=== PATIENT | male | born 1980 | race Caucasian/White ===

== ENCOUNTER 2018-09-03 22:33 | Inpatient (IN) | payer BC ==
[2018-09-03] MEDS ORDERED: Heparin 1,000 UNITS/ML VIAL ONE ×2 (23:32)
[2018-09-03] MEDS ORDERED: Heparin 25,000 units/D5W 500 ML ONE (23:50)
[2018-09-04 00:22] LABS: CKMB 31.4 ng/mL (0-6.6)
[2018-09-04 02:30] VITALS: BMI 39.2
[2018-09-04] MEDS ORDERED: Acetaminophen 325 MG TAB PO PRN (02:37)
[2018-09-04] MEDS ORDERED: Acetaminophen 650 MG Suppository PR PRN (02:37)
[2018-09-04] MEDS ORDERED: Bisacodyl 5 MG TAB PO PRN (02:37)
[2018-09-04] MEDS ORDERED: Ondansetron ODT 4 MG TAB PO PRN (02:37)
[2018-09-04] MEDS ORDERED: Ondansetron PF 4 MG/2 ML Vial IVP PRN (02:37)
[2018-09-04] MEDS ORDERED: Senokot S 8.6-50 MG TAB PO PRN (02:37)
[2018-09-04] MEDS ORDERED: Heparin 25,000 units/D5W 500 ML IVPB SCH (02:45)
[2018-09-04 02:57] LABS: Critical Call Chem Troponin I RESULT DECREASING; Troponin I 17.524 ng/mL (< 0.028)
[2018-09-04] MEDS ORDERED: Heparin 10,000 UNITS/ 10 ML VIAL SLOW IVP SCH (03:00)
[2018-09-04] MEDS: Sodium Chloride 0.9% 1,000 ML IV SCH ×2 (04:21→11:33)
[2018-09-04 05:09] LABS: #Eosinphils 0.1 thou/uL (0.0-0.7); #Monocytes 0.9 thou/uL (0.11-0.59); #Neutrophils 5.7 thou/uL (1.40-6.50); %Basophils 0.2 % (0.0-1.0); %Eosinophils 0.6 % (0.0-10.0); %Lymphocytes 23.3 % (21.0-51.0); %Monocytes 10.7 % (0.0-10.0); %Neutrophils 65.2 % (42.0-75.0); Hemoglobin 14.1 g/dL (14.0-18.0); Mean Corpuscular HGB CONC 34.7 g/dL (32.0-36.0); Mean Corpuscular Hemoglobin 32.1 pg (27.0-31.0); Mean Corpuscular Volume 92.5 fL (78.0-98.0); Mean Platelet Volume 8.5 fL (7.4-10.4); Platelet Count 173 thou/uL (130-400); RBC Distribution Width 11.5 % (11.5-14.5); Red Blood Cell (RBC) Count 4.39 mill/uL (4.70-6.10); White Blood Cell (WBC) Count 8.7 thou/uL (4.8-10.8)
[2018-09-04 05:38] LABS: Anion Gap 13 mmol/L (10-20); BUN (Urea Nitrogen) 10 mg/dL (8.9-20.6); Calc. Creatinine Clearance 195 mL/min (70-130); Calcium 8.9 mg/dL (7.8-10.44); Carbon Dioxide 24 mmol/L (22-29); Chloride 104 mmol/L (98-107); Estimated GFR-MDRD Greater than 90; Glucose 89 mg/dL (70-105); Potassium 4.3 mmol/L (3.5-5.1); Sodium 137 mmol/L (136-145)
[2018-09-04 07:09] LABS: Troponin I 19.537 ng/mL (< 0.028)
[2018-09-04] MEDS ORDERED: Diazepam 5 MG TAB PO SCH (07:30)
[2018-09-04] MEDS ORDERED: Communication Order-Pharmacy FS SCH (07:30)
[2018-09-04] MEDS ORDERED: Midazolam HCl 2 mg/2 ml Vial ONE (07:45)
[2018-09-04] MEDS ORDERED: Fentanyl 100 MCG/2 ML VIAL ONE (07:45)
[2018-09-04] MEDS ORDERED: Metoprolol Tartrate 5 MG/5 ML VIAL ONE (07:57)
[2018-09-04] MEDS ORDERED: Nitroglycerin 100MG/250ML BOT 250 ML ONE (08:07)
--- NOTE | 2018-09-04 08:27 | HP ---
CHIEF COMPLAINT: Chest pain. HISTORY OF PRESENT ILLNESS: This is a 38-year-old male with past medical history of hypertension, GERD, migraines, tobacco user, presenting with chest pain. The patient was transferred from [place] to our facility to be further evaluated since the patient has been having chest pain since September 01. Per records, the patient states that he was relaxing when he started having his chest pain which was substernal in nature, localized, not radiating, on the pain scale of 10/10. The patient states that the chest pain was intermittent, and it has been ongoing since September 01, 2018. The patient also endorses shortness of breath, neck pain, nausea, dizziness, some vomiting during the Chancellor Jayne. At this time, the patient is saying that, after receiving aspirin, his chest pain is 2/10 and he is feeling much better. The patient denies any fevers, headaches, palpitations, abdominal pain, dysuria, hematuria, hematochezia, or melena. REVIEW OF SYSTEMS: Positive for chest pain that radiates to the patient's neck, near syncope, dizziness, vomiting, nausea, shortness of breath, otherwise as documented in the HPI. All other systems were reviewed and are negative. PAST MEDICAL HISTORY: Hypertension, GERD, and migraine. FAMILY HISTORY: Reviewed and nonsignificant to this visit. SURGICAL HISTORY: The patient had tonsillectomy. PSYCHIATRIC HISTORY: No psych history. SOCIAL HISTORY: The patient smokes about 20 cigarettes a day, and the patient has been smoking for quite some time. The patient denies any illicit drug use. The patient drinks socially. ALLERGIES: THE PATIENT IS ALLERGIC TO IMITREX. CURRENT MEDICATIONS: The patient takes: 1. Losartan/hydrochlorothiazide 50 mg/12.5 mg. 2. Nifedipine 10 mg. 3. Omeprazole 10 mg. PHYSICAL EXAMINATION: VITAL SIGNS: The patient's blood pressure is 125/72, pulse of 82, respiratory rate of 16, temperature of 99.7, and O2 saturation of 96. GENERAL: The patient is lying in bed, very comfortable, obese, does not appear to be in any acute distress. The patient is able to speak to me in full sentences. HEENT: Normocephalic, atraumatic. Pupils are equally round and reactive to light. Extraocular movements are intact. No scleral icterus. No conjunctival pallor. Mucous membranes are moist. NECK: Trachea is midline. Full range of motion. Supple. Nontender. No JVD. LUNGS: Clear to auscultation bilaterally. No wheezing, no rales, no rhonchi appreciated. CARDIAC: Positive S1 and S2. Regular rate and rhythm. No murmurs, no gallops, no rubs appreciated. ABDOMEN: Soft, nontender, and nondistended. Positive bowel sounds in all quadrants. No peritoneal signs. EXTREMITIES: The patient has 5/5 upper extremity strength with good pulses bilaterally and 5/5 lower extremity strength with good pulses bilaterally. The patient has no edema noted. NEUROLOGIC: Cranial nerves 2 through 12 grossly intact. No neurological deficits noted. SKIN: Warm, dry, and intact. PSYCHIATRIC: The patient is alert and oriented x3, not in acute distress. DIAGNOSTIC DATA: EKG; sinus at a rate of 82. There are Q-waves at the inferior leads noted. LABORATORY DATA: WBC is 8.7, hemoglobin is 14.1, hematocrit is 40.6, and platelet count is 173. Sodium is 137, potassium is 4.3, chloride is 104, carbon dioxide of 24, anion gap of 13, BUN is 10, creatinine is 0.87. Troponins 19.592, 17.524, and 19.537 consecutively. ASSESSMENT AND PLAN: This is a 38-year-old male with past medical history of hypertension, being admitted for [id number] myocardial infarction. At this time, the patient's troponin is highly elevated. Cardiology has been consulted and the patient's EKG seems to have some Q-waves at the inferior leads. At this point, the patient has been made n.p.o. for possible cath in the morning. We have started the patient on heparin. The patient has received aspirin. We will continue to monitor the patient closely and we will follow up with Cardiology regarding any further recommendations. History of hypertension. Currently, the patient is normotensive. We will continue the patient on lisinopril, and we will monitor the patient's blood pressure accordingly. Deep venous thrombosis and gastrointestinal prophylaxis. Job ID: [id number]
[2018-09-04] MEDS ORDERED: Acetaminophen/Codeine 30-300mg Tablet PO PRN ×2 (08:36)
[2018-09-04] MEDS ORDERED: Nitroglycerin 0.4 MG TAB (25 Tab Bottle) SL PRN (08:36)
[2018-09-04] MEDS ORDERED: traMADol HCl 50 MG TAB PO PRN (08:36)
[2018-09-04 08:41] LABS: Cardiac Risk 4.9 (Less than 4.5)
[2018-09-04] MEDS ORDERED: Sodium Chloride 0.9% 200 ML IV SCH (08:45)
[2018-09-04] MEDS ORDERED: Aspirin 325 mg Enteric Coated Tablet PO SCH (09:00)
--- NOTE | 2018-09-04 10:18 | CON ---
DATE OF CONSULTATION: 09/04/2018 TYPE OF CONSULTATION: Cardiology consultation. REASON FOR CONSULTATION: Recent myocardial infarction with intermittent chest pain. HISTORY OF PRESENT ILLNESS: Mr. Daljit Wilson is a 38-year-old man. He had an episode of severe chest pain three days ago, which was extremely intense in his left upper chest, made him difficult to breathe. At one point, he felt like he is going to pass out. He states that the pain has continued since then. He said it was also severe the next day and then also yesterday and finally, he went to the emergency room because the pain did not seem like it was going away. The worst pain he said was actually the one that was three days ago. He went to the emergency room yesterday because "started getting scared" because the pain was persistent. The patient has never had pain like that before. The patient was transferred here. The patient states that since he has been here, he has not had any chest pain. PAST MEDICAL HISTORY: 1. Hypertension. 2. Obesity. MEDICATIONS: He was given aspirin in [place]. The patient's medicine list according to the nurse's notes here; 1. Losartan-HCTZ 100/12.5 a day. 2. Nifedipine ER 60 mg a day. PAST SURGICAL HISTORY: No cardiac surgeries or procedures. REVIEW OF SYSTEMS: CONSTITUTIONAL: No significant weight gain or loss. He is extremely obese. HEENT: Vision, no changes. Hearing, no changes. PULMONARY: No cough or wheezing. GASTROINTESTINAL: No nausea, vomiting, or diarrhea. SKIN: No rashes. NEUROLOGIC: No unilateral weakness or numbness. PSYCHIATRIC: No unusual depression or anxiety. He does, however, have daytime fatigue and sleepy when he wakes up in the morning and said to his that he snores (strongly I suspect he has sleep apnea). ALLERGIES: SUMATRIPTAN. FAMILY HISTORY: Negative for heart disease at young age. SOCIAL HISTORY: Smokes one pack cigarettes per day. PHYSICAL EXAMINATION: GENERAL: A pleasant 38-year-old gentleman, resting comfortably with no distress. VITAL SIGNS: Blood pressure was 130/70, pulse 86, sinus, it is regular. HEENT: Eyes, sclerae nonicteric. Mouth, mucous membranes moist. NECK: Supple. No lymphadenopathy. No bruits. LUNGS: Clear anteriorly and laterally. CARDIAC: Normal S1. Normal S2. I do not hear murmur, rub, or gallop. ABDOMEN: Obese and nontender. No hepatosplenomegaly. EXTREMITIES: Warm and dry. No clubbing or cyanosis. There is no edema. Dorsalis pedis and posterior tibial pulses are all palpable. IMAGING DATA: Electrocardiogram shows normal sinus rhythm. He has Q-waves in leads III and aVF with some ST elevation in those leads. PERTINENT LABORATORY DATA: His troponin on arrival here was 19.5, and followup was 17.5. Cholesterol, I have just ordered. ASSESSMENT: 1. Myocardial infarction, probably occurred three days ago with this intermittent stuttering pain since then. 2. History of hypertension. 3. History of smoking. 4. Unknown cholesterol status. 5. Morbid obesity, BMI is 39. 6. Strongly suspect sleep apnea. PLAN: 1. In view of the stuttering pain, I would recommend proceeding to cardiac catheterization. Discussed risks of stroke, heart attack, iodine allergy, loss of blood supply to leg or kidney, stent thrombosis, and stent restenoses. He understands and wished to proceed. Also discussed this over the phone with his . 2. Continue blood pressure medicines. 3. Make sure he has received aspirin. 4. If appropriate, stent implantation will be performed. If he has a very long occlusion, medical therapy may be the best option as mentioned, most likely the DE occurred several days ago. Job ID: [id number]
--- NOTE | 2018-09-04 10:27 | PDOC.PN ---
- Subjective Encounter Start Date: 09/04/18 (f/u nstemi) Encounter Start Time: 10:25 Subjective: Pt denies any chest pain currently/n/v/abd pain - Objective Resuscitation Status - Order Detail: 09/04/18 02:37 Resuscitation Status Routine Resuscitation Status: FULL: Full Resuscitation Vital Signs & Weight: Vital Signs (12 hours) Temp Pulse Ox 09/04/18 07:46 95 09/04/18 07:00 100.2 F H 09/04/18 05:00 99.4 F 09/04/18 03:00 98.2 F 09/04/18 02:15 95 Weight Weight 266 lb 1.567 oz Most Recent Monitor Data Heart Rate from ECG 71 NIBP 113/74 NIBP BP-Mean 87 Respiration from ECG 27 SpO2 97 I&O: 09/03/18 09/04/18 09/05/18 06:59 06:59 06:59 Intake Total 381 Output Total 775 300 Balance -394 -300 Result Diagrams: 09/04/18 04:22 09/04/18 04:22 EKG Reviewed by me: Yes (sinus 60s with pvcs) Phys Exam - Physical Examination Constitutional: NAD Respiratory: no wheezing, no rales, no rhonchi, clear to auscultation bilateral Cardiovascular: RRR, no significant murmur Gastrointestinal: soft, non-tender, positive bowel sounds Musculoskeletal: no edema Psychiatric: normal affect Dx/Plan (1) NSTEMI (non-ST elevated myocardial infarction) Code(s): I21.4 - NON-ST ELEVATION (NSTEMI) MYOCARDIAL INFARCTION Status: Acute (2) Tobacco abuse Code(s): Z72.0 - TOBACCO USE Status: Chronic (3) GERD (gastroesophageal reflux disease) Code(s): K21.9 - GASTRO-ESOPHAGEAL REFLUX DISEASE WITHOUT ESOPHAGITIS Status: Chronic Qualifiers: Esophagitis presence: esophagitis presence not specified Qualified Code(s) : K21.9 - Gastro-esophageal reflux disease without esophagitis (4) Hypertension Code(s): I10 - ESSENTIAL (PRIMARY) HYPERTENSION Status: Chronic Qualifiers: Hypertension type: essential hypertension Qualified Code(s): I10 - Essential (primary) hypertension - Plan * Pt with multivessel disease - awaiting [facility] evaluation * * bp well controlled - hold on medications * gerd - will add IV protonix for now as pt reports sx if not on his home ppi. change to PO when diet allowed * * dvt prophy - scd's * gi prophy - not indicated, tx underlying gerd * code status full * * reviewed plan of care wiht patient, no questions or further needs at end of eval.
[2018-09-04] MEDS ORDERED: Pantoprazole 40 MG VIAL IVP SCH (11:00)
[2018-09-04] MEDS ORDERED: Iopamidol 370 76% 100 ML VIAL ONE (13:21)
[2018-09-04] MEDS ORDERED: Communication Order-Pharmacy FS ONE (14:02)
--- NOTE | 2018-09-04 14:30 | CON ---
DATE OF CONSULTATION: HISTORY OF PRESENT ILLNESS: A 38-year-old obese gentleman from [facility], presenting with chest pain, nausea, diaphoresis, radiation to left upper arm, started on Samantha Jayne. In the ER, his saturations were 96% on room air, blood pressure 125/72, respiratory rate 16. He underwent a cardiac catheterization by Dr. Junior, panel flow machine operator, and was told he had three-vessel disease. Pulmonary is seeing while in the ICU. He has smoked for 19 years, a pack a day without any prior history of TB, pneumonia, or bronchial asthma. He does snore, probably has sleep apnea. PAST MEDICAL HISTORY: Hypertension, takes medications for that. PAST SURGICAL HISTORY: None. MEDICATIONS: His list of medications from home includes; 1. Omeprazole 20. 2. Nifedipine 60. 3. . ALLERGIES: IMITREX. SOCIAL HISTORY: Does warehouse work. Alcohol, minimal. Drugs, none. REVIEW OF SYSTEMS: Negative. He is adopted. No family history of known heart disease. PHYSICAL EXAMINATION: GENERAL: Awake, alert, and responsive. VITAL SIGNS: Blood pressure 113/74, pulse respirations 18, and saturations 97%. CHEST: No wheezing. CARDIAC: Normal S1 and S2. No gallops. ABDOMEN: No masses. LABORATORY DATA: White count 8000, hemoglobin and hematocrit of 14 and 40, platelet count 173. Lytes are normal. Troponin is markedly elevated at 19.53. IMPRESSION: 1. Acute coronary syndrome. 2. Three-vessel disease, status post cath. 3. Sleep apnea. 4. Hypertension. PLAN: Await input from Cardiovascular Surgery. Pulmonary will follow while in the ICU, probably needs an outpatient sleep study. Job ID: [id number]
[2018-09-04 15:01] LABS: Hemoglobin A1c 5.2 % (4.0-6.0)
[2018-09-04] MEDS ORDERED: Morphine 2 MG/ML SYRINGE SLOW IVP PRN (16:02)
--- NOTE | 2018-09-04 17:26 | CON ---
DATE OF CONSULTATION: HISTORY OF PRESENT ILLNESS: This is a 38-year-old gentleman, who presented with a 3 to 4 day history of chest pressure burning sensation, nausea, and fatigue. He was noted to have elevated cardiac enzymes on admission with a peak troponin here of about 20 and a CK-MB of 31.4. Cardiac echo, however, was read as 50% to 55% ejection fraction with mild inferior hypokinesis. PAST MEDICAL HISTORY: Significant for hypertension, for which he takes medicines with no diabetes or dyslipidemia. PAST SURGICAL HISTORY: Negative. SOCIAL HISTORY: He smokes a pack of cigarettes a day. He is with 3 children. He works for [employer] in [facility]. ALLERGIES: IMITREX. MEDICATIONS: At home, include: 1. Losartan/hydrochlorothiazide 50/12.5. 2. Nifedipine 60 mg daily. 3. Omeprazole 20 mg daily. PHYSICAL EXAMINATION: GENERAL: Alert and cooperative gentleman, 5 feet 9 inches, 266 pounds with BMI of 39. NECK: No carotid bruits. LUNGS: Clear to auscultation. CARDIAC: Regular rate and rhythm. No murmurs. ABDOMEN: Obese and nontender. EXTREMITIES: He is right arm dominant with a good left radial pulse and a good plethysmography waveform with occlusion. No peripheral edema. Palpable pedal pulses. LABORATORY DATA: Triglyceride 232 and cholesterol 147. PLAN: Plan at this time for coronary artery bypass grafting to the LAD, obtuse marginal in right system. Informed consent has been obtained, possible left radial. Job ID: [id number]
[2018-09-04] MEDS ORDERED: Sodium Chloride 0.9% 1,000 ML IV SCH (18:51)
[2018-09-04] MEDS ORDERED: Atorvastatin Calcium 20 MG TAB PO SCH (21:00)
[2018-09-05] MEDS ORDERED: NOREPINEPHRINE ONE (06:06)
[2018-09-05] MEDS ORDERED: NS ONE (06:06)
[2018-09-05] MEDS ORDERED: Albumin 5% 500 ML ONE (06:25)
[2018-09-05] MEDS ORDERED: Fentanyl 250 MCG/5 ML VIAL ONE (06:41)
[2018-09-05] MEDS ORDERED: Heparin 10,000 UNITS/1 ML VIAL 30,000 UNITS in Sodium Chloride 0.9% 1,000 ML FS SCH (06:45)
[2018-09-05] MEDS ORDERED: Midazolam HCl 5 mg/5 ml Vial ONE (07:14)
[2018-09-05] MEDS ORDERED: Gentamicin 80 MG/2 ML VIAL ONE (08:03)
[2018-09-05] MEDS ORDERED: Vecuronium 10 MG VIAL ONE ×2 (09:58→20:15)
[2018-09-05] MEDS ORDERED: PROPOFOL 40 ML ONE (11:44)
[2018-09-05] MEDS ORDERED: CEFAZOLIN/Water 2 GM/20 ML SYRINGE SLOW IVP SCH (12:39)
[2018-09-05] MEDS ORDERED: Acetaminophen 325 MG TAB PO PRN (12:39)
[2018-09-05] MEDS ORDERED: niCARdipine HCl 25 MG in Sodium Chloride 0.9% 250 ML 240 ML IVPB PRN (12:39)
[2018-09-05] MEDS ORDERED: Bisacodyl 10 MG SUPP PR PRN (12:39)
[2018-09-05] MEDS ORDERED: Magnesium 2 GM/NS 0.9% 100 ML 2 GM in Premix Bag 1 BAG IVPB SCH (12:39)
[2018-09-05] MEDS ORDERED: Bisacodyl 5 MG TAB PO PRN (12:39)
[2018-09-05] MEDS ORDERED: Norepinephrine 8 MG/0.9% NS 250 ML IVPB PRN (12:39)
[2018-09-05] MEDS ORDERED: Post-Op Insulin Drip Protocol IVPB SCH (12:39)
[2018-09-05] MEDS ORDERED: Ondansetron PF 4 MG/2 ML Vial IVP PRN (12:39)
[2018-09-05] MEDS ORDERED: Nitroglycerin 50 MG/250 ML BOT 250 ML IVPB PRN (12:39)
[2018-09-05] MEDS ORDERED: Hetastarch 6% 500 ML 500 ML IVPB PRN (12:39)
[2018-09-05] MEDS ORDERED: Potassium Chloride 20 MEQ/100 ML PREMIX BAG IVPB PRN (12:39)
[2018-09-05] MEDS ORDERED: Mag-Al 1200 mg/1200 mg/30 ML UDCUP PO PRN (12:39)
[2018-09-05] MEDS ORDERED: hydrALAZINE 20 MG/ML VIAL SLOW IVP PRN (12:39)
[2018-09-05] MEDS ORDERED: Promethazine HCl 25 MG/ML VIAL IM PRN (12:39)
[2018-09-05] MEDS ORDERED: Guaifenesin DM 100-10/5 ML UDCUP PO PRN (12:39)
[2018-09-05 12:40] LABS: Actual Bicarbonate (HCO3a) 22.3 mEq/L (22-28); Base Excess (BEa) -3.9 mEq/L (-2.0 to +3.0); CO2 Tension 45.1 mmHg (35.0-45.0); Calcium, Ionized 1.15 mmol/L (1.12-1.30); Carboxyhemoglobin (COHb) 1.7 gm% (0.0-3.0); Hemoglobin (Hb) 12.1 g/dL (14.0-18.0); O2 Tension (PaO2) 71.8 mmHg (80.0-100.0); Potassium - ABG Lab 4.26 mmol/L (3.70-5.30); pH, Arterial 7.31 (7.35-7.45)
[2018-09-05 12:41] LABS: ALV-art Gradient 370.925 (0-20); Puncture Site ALINE
[2018-09-05] MEDS ORDERED: Morphine 2 MG/ML SYRINGE SLOW IVP PRN (12:51)
[2018-09-05 12:57] LABS: #Eosinphils 0.1 thou/uL (0.0-0.7); #Lymphocytes 0.7 thou/uL (1.20-3.40); #Monocytes 0.6 thou/uL (0.11-0.59); #Neutrophils 12.4 thou/uL (1.40-6.50); %Basophils 0.1 % (0.0-1.0); %Eosinophils 0.7 % (0.0-10.0); %Lymphocytes 5.2 % (21.0-51.0); %Monocytes 4.5 % (0.0-10.0); %Neutrophils 89.5 % (42.0-75.0); Hemoglobin 12.1 g/dL (14.0-18.0); Mean Corpuscular HGB CONC 34.3 g/dL (32.0-36.0); Mean Corpuscular Hemoglobin 32.5 pg (27.0-31.0); Mean Corpuscular Volume 94.7 fL (78.0-98.0); Mean Platelet Volume 8.3 fL (7.4-10.4); Platelet Count 136 thou/uL (130-400); RBC Distribution Width 11.4 % (11.5-14.5); Red Blood Cell (RBC) Count 3.73 mill/uL (4.70-6.10); White Blood Cell (WBC) Count 13.9 thou/uL (4.8-10.8)
[2018-09-05] MEDS ORDERED: Magnesium 2 GM/50 ML 2 GM in Premix Bag 1 BAG IVPB SCH (13:00)
[2018-09-05] MEDS ORDERED: Insulin Regular 100 units/100 ml in NS IVPB SCH (13:00)
[2018-09-05 13:03] LABS: INR-International Normal Ratio 1.3; PTT 30.9 SEC (22.9-36.1); Prothrombin Time 16.6 SEC (12.0-14.7)
[2018-09-05 13:04] LABS: Anion Gap 11 mmol/L (10-20); BUN (Urea Nitrogen) 12 mg/dL (8.9-20.6); Calc. Creatinine Clearance 180 mL/min (70-130); Calcium 8.8 mg/dL (7.8-10.44); Carbon Dioxide 24 mmol/L (22-29); Chloride 109 mmol/L (98-107); Estimated GFR-MDRD 89; Glucose 164 mg/dL (70-105); Potassium 4.8 mmol/L (3.5-5.1); Sodium 139 mmol/L (136-145)
[2018-09-05] MEDS: Ketorolac Tromethamine 30 MG/ML VIAL IVP SCH ×3 (13:08→23:10)
[2018-09-05] MEDS: CEFAZOLIN 2 GM/50 ML-DEXTROSE 2 GM in Premix Bag 1 BAG IVPB SCH ×2 (13:14→22:53)
[2018-09-05] MEDS: Fentanyl 100 MCG/2 ML VIAL SLOW IVP PRN ×3 (13:39→18:34)
--- NOTE | 2018-09-05 13:53 | OP ---
DATE OF PROCEDURE: 09/05/2018 PREOPERATIVE DIAGNOSIS: Unable to place Jaramillo catheter in anticipation of coronary artery bypass graft surgery. POSTOPERATIVE DIAGNOSIS: False passage. PROCEDURE PERFORMED: Flexible cystoscopy and placement of Hopland catheter. ANESTHESIA: General. FINDINGS: Urethral trauma in the pendulous and bulbar urethra. No stricture. COMPLICATIONS: None. DRAIN REMAININ-Tuvaluan Hopland. BLOOD LOSS: None. INDICATIONS FOR PROCEDURE: The patient is a 38-year-old male who Dr. Pastrana was anticipating doing coronary artery bypass graft surgery in an attempt to put the catheter and the nurses had difficulty and he attempted and it was also unable to place it adequately, so I was consulted for Jaramillo placement. DESCRIPTION OF PROCEDURE: The patient was already asleep and in supine position with general anesthesia and prepped and draped in sterile fashion and then using an 18-Tuvaluan cystoscope, the urethra was traversed. Clot and urethral trauma was noted, but I was able to navigate the scope through the urethra and the sphincter and into the prostatic urethra and bladder easily. A wire was left in place. The cystoscope removed and then an 18-Tuvaluan Hopland was placed over the wire with the wire being removed in the catheter to gravity with the balloon blown up. We discussed keeping the catheter in during his hospital stay, but then on the day of discharge, it can be removed and he should do well thereafter. Given that there was no definitive stricture, the likelihood of forming a stricture is now less, but does exist given the mild urethral trauma, so he should monitor for urinary symptoms over time. Job ID: [id number] [facility]
--- NOTE | 2018-09-05 14:01 | RAD ---
SINGLE VIEW OF THE CHEST: Comparison: 09-03-18 History: Open heart surgery. FINDINGS: Single view of the chest shows a normal sized cardiomediastinal silhouette. Endotracheal tube is seen with its tip between the clavicles. Patient is status post CABG. There is a left sided chest tube wi thout evidence of pneumothorax. A new spinal drain is also seen. IMPRESSION: Appropriate position of lines and tubes status post sternotomy. POS: [facility]
[2018-09-05] MEDS: Insulin Regular 300 UNITS/3 ML VIAL SC PRN ×2 (14:19→16:19)
[2018-09-05] MEDS: Sodium Chloride 0.9% 1,000 ML IV SCH ×3 (14:21→23:51)
[2018-09-05 15:35] LABS: Actual Bicarbonate (HCO3a) 22.6 mEq/L (22-28); Base Excess (BEa) -2.7 mEq/L (-2.0 to +3.0); CO2 Tension 41.1 mmHg (35.0-45.0); Calcium, Ionized 1.11 mmol/L (1.12-1.30); Carboxyhemoglobin (COHb) 1.5 gm% (0.0-3.0); Hemoglobin (Hb) 13.4 g/dL (14.0-18.0); Potassium - ABG Lab 4.31 mmol/L (3.70-5.30); pH, Arterial 7.36 (7.35-7.45)
--- NOTE | 2018-09-05 15:48 | EKG ---
Test Reason : CP Blood Pressure : / mmHG Vent. Rate : 082 BPM Atrial Rate : 082 BPM P-R Int : 152 ms QRS Dur : 098 ms QT Int : 344 ms P-R-T Axes : 030 004 029 degrees QTc Int : 401 ms Normal sinus rhythm Inferior infarct , age undetermined Abnormal ECG Confirmed by GALILEO CLAYTON DO ([id number]), industrial editor BALDO ALFARO ([id number] on 09/05/2018 3:48:04 PM Referred By: Confirmed By:GALILEO CLAYTON DO
[2018-09-05 15:52] LABS: O2 Tension (PaO2) 57.7 mmHg (80.0-100.0); Puncture Site ALINE
[2018-09-05 15:53] LABS: ALV-art Gradient -37.775 (0-20)
--- NOTE | 2018-09-05 16:03 | PRG ---
DATE OF SERVICE: 09/05/2018 SUBJECTIVE: Mr. Wilson is doing well postoperatively. He is intubated, hopefully to be extubated soon. OBJECTIVE: VITAL SIGNS: Blood pressure 111/71, pulse 90s, it is regular. LUNGS: Clear. CARDIAC: Normal S1, normal S2. ABDOMEN: Soft, nontender. EXTREMITIES: Warm and dry. The patient appears alert. The patient had bypass x4, internal mammary to the LAD, radial to the diagonal, saphenous vein graft to marginal branch and a right coronary artery. CONCLUSION: 1. Status post inferior myocardial infarction with right ventricular involvement. 2. Three-vessel coronary artery disease. PLAN: 1. Extubation soon. 2. Aspirin. 3. Statin. 4. Beta blockers as tolerated. 5. My partners will be following up with this patient. Job ID: [id number]
--- NOTE | 2018-09-05 16:33 | PDOC.PN ---
- Subjective Encounter Start Date: 09/05/18 (f/u CAD) Encounter Start Time: 16:30 Subjective: pt is s/p CABG today. Extubated, c/o pain and difficulty -: with taking a deep breath - Objective Resuscitation Status - Order Detail: 09/04/18 02:37 Resuscitation Status Routine Resuscitation Status: FULL: Full Resuscitation Vital Signs & Weight: Vital Signs (12 hours) Temp Pulse Resp BP Pulse Ox 09/05/18 16:00 99.0 F 09/05/18 15:40 91 26 H 94 L 09/05/18 15:21 92 111/71 09/05/18 12:39 102 H 134/91 H 09/05/18 12:15 18 94 L 09/05/18 12:11 98.4 F 09/05/18 07:15 97 Weight Weight 266 lb 1.567 oz Most Recent Monitor Data Heart Rate from ECG 94 NIBP 111/71 NIBP BP-Mean 84 Respiration from ECG 32 SpO2 98 I&O: 09/04/18 09/05/18 09/06/18 06:59 06:59 06:59 Intake Total 381 3164 150 Output Total 775 2500 1235 Balance -394 469 -1049 Result Diagrams: 09/05/18 12:24 09/05/18 12:24 Additional Labs: Accuchecks 09/05/18 09/05/18 09/05/18 11:27 10:43 09:35 POC Glucose 171 H 175 H 121 H 09/05/18 08:19 POC Glucose 104 EKG Reviewed by me: Yes (sinus 80's) Phys Exam - Physical Examination Constitutional: NAD appears uncomfortable secondary to pain Respiratory: no wheezing, no rales, no rhonchi shallow breathing Cardiovascular: RRR, no significant murmur Gastrointestinal: soft, positive bowel sounds Psychiatric: normal affect Deviation from normal: answering questions appropriately Dx/Plan (1) NSTEMI (non-ST elevated myocardial infarction) Code(s): I21.4 - NON-ST ELEVATION (NSTEMI) MYOCARDIAL INFARCTION Status: Acute (2) Tobacco abuse Code(s): Z72.0 - TOBACCO USE Status: Chronic (3) GERD (gastroesophageal reflux disease) Code(s): K21.9 - GASTRO-ESOPHAGEAL REFLUX DISEASE WITHOUT ESOPHAGITIS Status: Chronic Qualifiers: Esophagitis presence: esophagitis presence not specified Qualified Code(s) : K21.9 - Gastro-esophageal reflux disease without esophagitis (4) Hypertension Code(s): I10 - ESSENTIAL (PRIMARY) HYPERTENSION Status: Chronic Qualifiers: Hypertension type: essential hypertension Qualified Code(s): I10 - Essential (primary) hypertension - Plan * Post-op care per [facility] * * orders reviewed and nothing to add * dvt prophy - scd's * gi prophy - famotidine * code status full * * no questions or further needs at end of eval. * * Discussed with Dr. Pastrana -he will accept care/become attending for patient. No additional needs identified that pt will benefit from hospitalist daily rounding.
[2018-09-05 17:58] LABS: Hemoglobin 11.8 g/dL (14.0-18.0)
[2018-09-05 18:11] LABS: Potassium 4.5 mmol/L (3.5-5.1)
[2018-09-05] MEDS ORDERED: Aminocaproic Acid 5 GM/20 ML VIAL ONE (20:15)
[2018-09-05] MEDS ORDERED: Potassium Chloride 60 MEQ/30 ML VIAL ONE (20:15)
[2018-09-05] MEDS ORDERED: Heparin 30,000 units/30 ml VIAL ONE (20:15)
[2018-09-05] MEDS ORDERED: Cardioplegic Soln 1,000 ML BAG ONE (20:15)
[2018-09-05] MEDS ORDERED: Sterile Water 10 ML VIAL ONE (20:15)
[2018-09-05] MEDS ORDERED: Magnesium 5 GM/10 ML VIAL ONE (20:15)
[2018-09-05] MEDS ORDERED: Heparin 5,000 UNITS/ML VIAL ONE (20:15)
[2018-09-05] MEDS ORDERED: Dexamethasone 20 MG/5 ML VIAL ONE (20:15)
[2018-09-05] MEDS ORDERED: Papaverine 60 MG/2 ML VIAL ONE (20:15)
[2018-09-05] MEDS ORDERED: Lidocaine 1% PF 5 ML VIAL ONE (20:15)
[2018-09-05] MEDS ORDERED: Sodium Bicarb 50 MEQ/50 ML VIAL ONE (20:15)
[2018-09-05] MEDS ORDERED: Lidocaine 2% PF 100 mg/5 ml Syringe ONE (20:15)
[2018-09-05] MEDS ORDERED: Ondansetron PF 4 MG/2 ML Vial ONE (20:15)
[2018-09-05] MEDS ORDERED: CEFAZOLIN 1 GM VIAL ONE (20:15)
[2018-09-05] MEDS ORDERED: Thrombin 5000 UNITS/5 ML VIAL ONE (20:15)
[2018-09-05] MEDS ORDERED: Albumin 25% 25 GM/100 ML BOT ONE (20:15)
[2018-09-05] MEDS ORDERED: Protamine Sulfate 250 MG/25 ML VIAL ONE (20:15)
[2018-09-05] MEDS ORDERED: Calcium Chloride 1 GM/10 ML Abboject SYRINGE ONE (20:15)
[2018-09-05] MEDS ORDERED: Succinylcholine Chloride 20 MG/ML 10 ml SYRINGE FS ONE (20:15)
[2018-09-05] MEDS ORDERED: Mannitol 12.5 GM/50 ML ONE (20:15)
[2018-09-05] MEDS: HYDROcodone/Acetaminophen 5/325 mg Tablet PO PRN (20:35)
[2018-09-05] MEDS: Simvastatin 20 MG TAB PO SCH (20:38)
[2018-09-05] MEDS: Famotidine/PF 20 mg/2ml Vial SLOW IVP SCH (20:38)
[2018-09-05] MEDS ORDERED: Simvastatin 20 MG TAB PO SCH (21:00)
[2018-09-06] MEDS: Insulin Regular 300 UNITS/3 ML VIAL SC PRN ×2 (01:33→07:05)
[2018-09-06] MEDS: Fentanyl 100 MCG/2 ML VIAL SLOW IVP PRN ×2 (03:45→17:18)
[2018-09-06 05:21] LABS: #Monocytes 1.6 thou/uL (0.11-0.59); #Neutrophils 13.3 thou/uL (1.40-6.50); %Eosinophils 0.1 % (0.0-10.0); %Lymphocytes 6.3 % (21.0-51.0); %Monocytes 9.9 % (0.0-10.0); %Neutrophils 83.7 % (42.0-75.0); Hemoglobin 11.1 g/dL (14.0-18.0); Mean Corpuscular HGB CONC 34.8 g/dL (32.0-36.0); Mean Corpuscular Hemoglobin 32.6 pg (27.0-31.0); Mean Corpuscular Volume 93.7 fL (78.0-98.0); Mean Platelet Volume 8.6 fL (7.4-10.4); Platelet Count 178 thou/uL (130-400); RBC Distribution Width 11.3 % (11.5-14.5); White Blood Cell (WBC) Count 15.9 thou/uL (4.8-10.8)
[2018-09-06] MEDS: CEFAZOLIN 2 GM/50 ML-DEXTROSE 2 GM in Premix Bag 1 BAG IVPB SCH (05:28)
[2018-09-06] MEDS: Ketorolac Tromethamine 30 MG/ML VIAL IVP SCH ×4 (05:28→23:42)
[2018-09-06 05:43] LABS: Anion Gap 9 mmol/L (10-20); BUN (Urea Nitrogen) 13 mg/dL (8.9-20.6); Calc. Creatinine Clearance 186 mL/min (70-130); Calcium 7.9 mg/dL (7.8-10.44); Carbon Dioxide 25 mmol/L (22-29); Chloride 106 mmol/L (98-107); Estimated GFR-MDRD Greater than 90; Glucose 129 mg/dL (70-105); Potassium 4.1 mmol/L (3.5-5.1); Sodium 136 mmol/L (136-145)
[2018-09-06] MEDS: HYDROcodone/Acetaminophen 5/325 mg Tablet PO PRN ×4 (08:07→23:43)
[2018-09-06] MEDS: Aspirin 325 MG TAB PO SCH (08:08)
[2018-09-06] MEDS: Famotidine/PF 20 mg/2ml Vial SLOW IVP SCH (08:08)
--- NOTE | 2018-09-06 08:58 | PDOC.CTH ---
Cardiology Progress Note - Subjective No complaints - Objective Vital Signs Temp Pulse Ox 09/06/18 07:43 95 09/06/18 07:00 98.3 F 09/06/18 04:00 100.4 F H 09/06/18 00:00 97.8 F Weight 266 lb 1.567 oz 09/05/18 09/06/18 09/07/18 06:59 06:59 06:59 Intake Total 3164 2913.2 Output Total 2500 2330 61 Balance 664 583.2 -61 - Physical Examination General/Neuro: alert & oriented x3, NAD Neck: carotid US brisk, no JVD present Lungs: unlabored respirations Heart: RRR Abdomen: NT/ND, soft Extremities: + femoral B - Labs Result Diagrams: 09/07/18 04:27 09/07/18 04:27 Troponin/CKMB CK-MB (CK-2) 31.4 ng/mL (0-6.6) H* 09/03/18 23:16 Troponin I 19.537 ng/mL (< 0.028) H* 09/04/18 05:58 - Assessment/Plan Severe CAD CABG statin and BB IS and PT CT still in place (09/06)
--- NOTE | 2018-09-06 09:17 | PRG ---
DATE OF SERVICE: 09/06/2018 SERVICE: Pulmonary Medicine. INTERVAL HISTORY: The patient is doing really well after his coronary artery bypass graft. He denies any current shortness of breath, nausea, or vomiting. His pain is under good control right now, but he is a touch somnolent. Otherwise, there has been no interval change to his condition. PHYSICAL EXAMINATION: VITAL SIGNS: Afebrile a T-max of 100.4. Pulse 96, blood pressure 199/67, respirations 27, saturation 97% on 2 L nasal cannula. GENERAL: The patient is awake and alert, in no apparent distress. LUNGS: Decent air entry. There is no prolonged expiratory phase. Dependent crackles are minimal. No rhonchi or wheezing appreciated. HEART: Normal rate, regular. ABDOMEN: Soft, nontender, and nondistended. Bowel sounds are positive. MUSCULOSKELETAL: No cyanosis or clubbing. There is trace pitting in the bilateral lower extremities, but the left leg is wrapped. GENITOURINARY: Jaramillo catheter in place. NEUROLOGIC: Grossly nonfocal. LABORATORY DATA: WBC 15.9, hemoglobin 11.1, platelets 178,000. INR 1.3. PH 7.36, pCO2 41, PO2 57. Basic metabolic profile this morning is completely unremarkable. IMAGING: Chest x-ray demonstrates low lung volumes accentuate the cardiac and mediastinal silhouette. There is a widened mediastinum on this film. Trachea is midline. A right subclavian central venous catheter has an odd course. Mediastinal drains are in good position. Volume loss is present on the left. ASSESSMENT: 1. Acute hypoxic respiratory failure. 2. Coronary artery bypass graft, postop day one. 3. [id number] myocardial infarction. 4. Obstructive sleep apnea, suspected. PLAN: Postoperative care will be continued. Pulmonary/Critical Care will continue to follow along for the time being. He will remain in the ICU until deemed safe for transition to the floor by Surgery. We will keep an eye on the mediastinal structures on daily chest x-rays. Job ID: [id number]
[2018-09-06] MEDS: Sodium Chloride 0.9% 1,000 ML IV SCH (09:47)
--- NOTE | 2018-09-06 11:32 | RAD ---
CHEST 1 VIEW: HISTORY: Heart surgery. Followup. COMPARISON: 09/05/2018. FINDINGS: Cardiac silhouette is magnified and enlarged. Pulmonary vasculature is accentuated by shallow inspir ation. Mediastinum is midline with postoperative changes. Endotracheal catheter no longer visible. Other lines and tubes appear unchanged in position. No evidence of pneumothorax. IMPRESSION: Interval extubation. Otherwise, stable postoperative appearance of the chest. POS: [facility]
[2018-09-06] MEDS ORDERED: Furosemide 40 MG/4 ML VIAL SLOW IVP SCH (12:00)
[2018-09-06] MEDS: Simvastatin 20 MG TAB PO SCH (20:15)
--- NOTE | 2018-09-07 01:56 | OP ---
DATE OF PROCEDURE: 09/05/2018 PREOPERATIVE DIAGNOSIS: Coronary artery disease. PROCEDURES PERFORMED: Coronary artery bypass graft x4, left internal mammary artery good quality to a 1.5-mm diseased LAD, saphenous vein good quality to a 1.5-mm OM prior to its bifurcation with disease and to a 2-mm distal right coronary artery at the takeoff of the PDA 2 mm, thickened turner, radial artery to a 1.5-mm second diagonal. CODING COMPLIANCE SPECIALIST: Zachary. TRANSFUSION: None. DESCRIPTION OF PROCEDURE: After adequate anesthesia had been obtained, the patient was prepped and draped. Dr. Sharma initially harvested the left radial artery and I simultaneously began an endovascular vein harvest of the left greater saphenous vein from just below the knee to the upper thigh. Following initial harvest, I proceeded to dealt with the chest, where the left internal mammary artery was harvested while Dr. Sharma completed the saphenous vein harvest. Following the completion of the mammary harvest, the patient was heparinized. The mammary was passed posterior to the thymus gland and a pericardium was slit to allow the mammary to pass directly toward the LAD. Aorta and right atrium were cannulated. Cardiopulmonary bypass was begun. The vessels were inspected for grafting. The aorta was crossclamped, and a L of cold blood cardioplegia was given. It should be noted that the distal anterior right ventricular wall was distended and noncontractile when the pericardium was opened, suggesting that this was part of his infarct. Following completion of the 4 distal anastomoses, the cross-clamp was removed. Partial occluding clamp was placed and 2 venous anastomosis performed on the aortic root and marked with rings and to the perrin of the OM graft, the radial artery placed. Proximal and distal anastomoses were hemostatic, and the patient was then weaned from cardiopulmonary bypass. Cannula was removed, and aortic cannulation sites were secured with the 4-0 Prolene suture. Mediastinal and left pleural drains were placed, following which the sternum was reapproximated with #7 interrupted wire and 3 zip ties using vancomycin paste on the sternal edges, platelet rich blood and platelet poor plasma. Subcutaneous tissue and skin were closed in layers. The patient is to be taken to the ICU in guarded condition. Job ID: [id number]
[2018-09-07 04:31] LABS: #Eosinphils 0.1 thou/uL (0.0-0.7); #Lymphocytes 1.4 thou/uL (1.20-3.40); #Monocytes 1.1 thou/uL (0.11-0.59); #Neutrophils 7.4 thou/uL (1.40-6.50); %Basophils 0.3 % (0.0-1.0); %Eosinophils 0.9 % (0.0-10.0); %Lymphocytes 14.3 % (21.0-51.0); %Monocytes 10.7 % (0.0-10.0); %Neutrophils 73.7 % (42.0-75.0); Hemoglobin 9.6 g/dL (14.0-18.0); Mean Corpuscular HGB CONC 34.9 g/dL (32.0-36.0); Mean Corpuscular Hemoglobin 32.5 pg (27.0-31.0); Mean Corpuscular Volume 93.2 fL (78.0-98.0); Mean Platelet Volume 7.6 fL (7.4-10.4); Platelet Count 152 thou/uL (130-400); RBC Distribution Width 11.1 % (11.5-14.5); Red Blood Cell (RBC) Count 2.97 mill/uL (4.70-6.10); White Blood Cell (WBC) Count 10.1 thou/uL (4.8-10.8)
[2018-09-07 04:54] LABS: Anion Gap 10 mmol/L (10-20); BUN (Urea Nitrogen) 12 mg/dL (8.9-20.6); Calc. Creatinine Clearance 232 mL/min (70-130); Calcium 8.2 mg/dL (7.8-10.44); Carbon Dioxide 28 mmol/L (22-29); Chloride 103 mmol/L (98-107); Estimated GFR-MDRD Greater than 90; Glucose 102 mg/dL (70-105); Sodium 137 mmol/L (136-145)
[2018-09-07] MEDS: HYDROcodone/Acetaminophen 5/325 mg Tablet PO PRN ×4 (05:28→22:04)
[2018-09-07] MEDS: Ketorolac Tromethamine 30 MG/ML VIAL IVP SCH ×3 (05:29→18:20)
[2018-09-07] MEDS: Fentanyl 100 MCG/2 ML VIAL SLOW IVP PRN (08:22)
[2018-09-07] MEDS: Aspirin 325 MG TAB PO SCH (08:55)
[2018-09-07] MEDS ORDERED: Pantoprazole 40 MG GRANULES PACKET PO SCH (09:00)
--- NOTE | 2018-09-07 09:12 | RAD ---
PORTABLE AP CHEST XRAY: DATE: 09/07/2018. HISTORY: Post open heart surgery. COMPARISON: 09/06/2018. FINDINGS: Postsurgical changes related to CABG are again noted. Multiple monitor leads overlie the chest with mediastinal drain unchanged in position. Right subclavian central venous catheter is again noted in place which courses across the midline with tip overlying the left lung apex. Cardiac silhouette rem ains enlarged. Left-sided thoracostomy tube is noted in place and there is persistent atelectasis in the left mid lung zone at the left lung base. Lungs are otherwise clear. Pulmonary vasculature sherman ears to be within normal limits. IMPRESSION: 1. Lines and tubes stable in position. 2. Cardiomegaly. 3. Atelectasis left mid lung zone and left lung base. 4. Cardiomegaly. POS: IDA
--- NOTE | 2018-09-07 09:34 | PRG ---
DATE OF SERVICE: 09/07/2018 SERVICE: Pulmonary Medicine. INTERVAL HISTORY: The patient is doing really well from respiratory standpoint. His appetite is coming back. He is tolerating p.o. He is passing gas. He denies any current nausea, vomiting, or shortness of breath. He does have appropriate chest discomfort. Otherwise, there has been no interval change to his condition. There were no reported events overnight. PHYSICAL EXAMINATION: VITAL SIGNS: Afebrile, pulse 92, blood pressure 124/71, respirations 22, and saturation 99% on 2 L nasal cannula. GENERAL: The patient is awake and alert, in no apparent distress. LUNGS: Excellent air entry. There is no prolonged expiratory phase or wheezing present. HEART: Normal rate, regular. ABDOMEN: Soft, nontender, and nondistended. Bowel sounds are positive. MUSCULOSKELETAL: No cyanosis or clubbing. There is trace pitting in the right lower extremity and 1+ pitting in the left lower extremity. NEUROLOGIC: Grossly nonfocal. LABORATORY DATA: WBC 10.1, hemoglobin 9.6, and platelets 152,000. Basic metabolic profile was completely unremarkable otherwise. IMAGING: Chest x-ray demonstrates low lung volumes are accentuated interstitial markings. There is a right-sided subclavian central venous catheter, but I cannot see the tip of it. Mediastinal drains are in good position. There is a persistently wide mediastinum. This may be a function of our technique. ASSESSMENT: 1. Acute hypoxic respiratory failure. 2. Coronary artery bypass graft, postop day 2. 3. Xea-ND-myogefwgi myocardial infarction. 4. Obstructive sleep apnea, suspected. DISCUSSION AND PLAN: Pulmonary will continue to follow while the patient remains in the hospital. Hopefully, the chest tubes will be coming out soon. Routine postop care will be continued. I think he can tolerate a small dose of Lasix. Job ID: [id number]
[2018-09-07] MEDS ORDERED: ALPRAZolam 0.25 MG TAB PO PRN (11:10)
[2018-09-07] MEDS ORDERED: Mag-Al 1200 mg/1200 mg/30 ML UDCUP PO PRN (11:40)
[2018-09-07] MEDS ORDERED: Mineral Oil ENEMA PR PRN (11:40)
[2018-09-07] MEDS ORDERED: Guaifenesin DM 100-10/5 ML UDCUP PO PRN (11:40)
[2018-09-07] MEDS ORDERED: Zolpidem Tartrate 5 MG TAB PO PRN (11:40)
[2018-09-07] MEDS ORDERED: Bisacodyl 10 MG SUPP PR PRN (11:40)
[2018-09-07] MEDS ORDERED: Nitroglycerin 0.4 MG TAB (25 Tab Bottle) SL PRN (11:40)
[2018-09-07] MEDS ORDERED: diphenhydrAMINE 25 MG CAP PO PRN (11:40)
[2018-09-07] MEDS ORDERED: Milk Of Magnesia 30 ML UDCUP PO PRN (11:40)
[2018-09-07] MEDS ORDERED: Bisacodyl 5 MG TAB PO PRN (11:40)
[2018-09-07] MEDS ORDERED: Artificial Tear Sol 15 ML BOT EA EYE PRN (11:40)
--- NOTE | 2018-09-07 12:40 | PDOC.CTH ---
Cardiology Progress Note - Subjective Pt doing well today. CT removed. - Objective Vital Signs Temp Pulse Ox 09/07/18 09:25 95 09/07/18 08:00 98.9 F 96 Weight 263 lb 14.293 oz 09/06/18 09/07/18 09/08/18 06:59 06:59 06:59 Intake Total 2913.2 1510 220 Output Total 2330 3111 270 Balance 583.2 -1601 -50 - Physical Examination General/Neuro: alert & oriented x3, NAD Neck: carotid US brisk, no JVD present Lungs: CTA, unlabored respirations Heart: PMI normal, RRR Abdomen: NT/ND, soft Extremities: + femoral B - Telemetry Telemetry Rhythm: sr - Labs Result Diagrams: 09/07/18 04:27 09/07/18 04:27 Troponin/CKMB CK-MB (CK-2) 31.4 ng/mL (0-6.6) H* 09/03/18 23:16 Troponin I 19.537 ng/mL (< 0.028) H* 09/04/18 05:58 - Assessment/Plan CAD s/p CABG Tbacco use Add BB On statin CT removed; Pt and IS Counseled on cessation of tobacco
[2018-09-07] MEDS: Simvastatin 20 MG TAB PO SCH (21:57)
[2018-09-07] MEDS: Metoprolol Tartrate 25 MG TAB PO SCH (21:57)
[2018-09-08] MEDS: Ketorolac Tromethamine 30 MG/ML VIAL IVP SCH ×3 (00:12→11:48)
[2018-09-08] MEDS: HYDROcodone/Acetaminophen 5/325 mg Tablet PO PRN ×4 (04:26→20:45)
[2018-09-08] MEDS ORDERED: Metolazone 5 MG TAB PO SCH (07:00)
[2018-09-08] MEDS ORDERED: Furosemide 20 MG TAB PO SCH (07:00)
[2018-09-08] MEDS ORDERED: Furosemide 40 MG TAB PO SCH (07:15)
[2018-09-08] MEDS: Metoprolol Tartrate 25 MG TAB PO SCH ×2 (08:24→20:44)
[2018-09-08] MEDS: Aspirin 325 mg Enteric Coated Tablet PO SCH (08:24)
[2018-09-08] MEDS: Potassium Chloride 10 MEQ TAB PO SCH (08:25)
--- NOTE | 2018-09-08 14:13 | PRG ---
DATE OF SERVICE: 09/08/2018 SUBJECTIVE: The patient is doing well and no complaints. OBJECTIVE: VITAL SIGNS: Temperature 98.4, pulse 82, blood pressure 120/61, O2 saturation 93% on room air. HEENT: Unremarkable. NECK: No JVD. CHEST: Clear without wheezing. CARDIAC: S1 and S2 regular. ABDOMEN: Soft. EXTREMITIES: No edema. LABORATORY DATA: No new labs were done today. ASSESSMENT: 1. Acute hypoxic respiratory failure which is resolved. 2. Status post coronary artery bypass grafting surgery. 3. Obstructive sleep apnea. PLAN: He will meet up with Dr. Burgos after hospital discharge to arrange a sleep study. From Pulmonary standpoint, he seems ready to go home. Job ID: [id number]
[2018-09-08] MEDS: Simvastatin 20 MG TAB PO SCH (20:44)
--- NOTE | 2018-09-08 20:58 | PDOC.CTH ---
Cardiology Progress Note - Subjective Doing well. having BM's. - Objective Vital Signs Temp Pulse Pulse Pulse Resp BP BP 09/08/18 15:50 99.9 F H 85 24 H 09/08/18 14:51 95 96 125/74 109/59 L 09/08/18 12:33 82 80 128/61 129/64 09/08/18 11:45 83 20 09/08/18 09:00 BP Pulse Ox Pulse Ox Pulse Ox 09/08/18 15:50 130/58 L 94 L 09/08/18 14:51 93 L 93 L 09/08/18 12:33 93 L 92 L 09/08/18 11:45 115/58 L 92 L 09/08/18 09:00 96 Weight 271 lb 4.8 oz 09/07/18 09/08/18 09/09/18 06:59 06:59 06:59 Intake Total 1510 1240 Output Total 3111 1620 1650 Balance -4172 -225 -8600 - Physical Examination General/Neuro: alert & oriented x3, NAD Neck: no JVD present Lungs: CTA, unlabored respirations Heart: RRR Abdomen: NT/ND Extremities: + edema B (Trace) - Telemetry Telemetry Rhythm: NSR - Labs Result Diagrams: 09/07/18 04:27 09/07/18 04:27 Troponin/CKMB CK-MB (CK-2) 31.4 ng/mL (0-6.6) H* 09/03/18 23:16 Troponin I 19.537 ng/mL (< 0.028) H* 09/04/18 05:58 - Assessment/Plan 1. Inferior STEMI 2. Multivessel CAD 3. s/p CABG 4. Tobacco use PLAN: - Continue BB - Continue statin/ASA - Will start very low dose ACEI. - Tobacco cessation counseling. - Increase PT as tolerated. - Watch temp.
[2018-09-09] MEDS: HYDROcodone/Acetaminophen 5/325 mg Tablet PO PRN ×2 (04:36→08:52)
[2018-09-09 04:39] VITALS: TEMP 99.5
[2018-09-09] MEDS: Aspirin 325 mg Enteric Coated Tablet PO SCH (08:51)
[2018-09-09] MEDS: Metoprolol Tartrate 25 MG TAB PO SCH (08:51)
[2018-09-09] MEDS: Potassium Chloride 10 MEQ TAB PO SCH (08:52)
[2018-09-09] MEDS ORDERED: Lisinopril 2.5 MG TAB PO SCH (09:00)
[2018-09-09 12:16] VITALS: BP 128/73
--- NOTE | 2018-09-09 13:25 | PRG ---
DATE OF SERVICE: 09/09/2018 SUBJECTIVE: This morning, he is awake, alert, and responsive. OBJECTIVE: VITAL SIGNS: Saturations are 95% on room air, respirations 20, blood pressure 120/58, temperature 99. CHEST: Decreased breath sounds. No wheezing. CARDIAC: Normal S1, S2. No gallops. ABDOMEN: No masses. IMPRESSION: 1. Status post coronary artery bypass graft. 2. Sleep apnea. PLAN: He was told to follow up in the office for outpatient sleep study. Otherwise, follow up with his Cardiology, supportive care, PT. Job ID: [id number]
--- NOTE | 2018-09-10 14:14 | DIS ---
DATE OF ADMISSION: 09/04/2018 DATE OF DISCHARGE: 09/09/2018 DIAGNOSES: 1. Coronary artery disease. 2. Obesity. 3. Hypertension. PROCEDURES: 1. Cardiac catheterization. 2. Coronary artery bypass grafting x4. a. Left internal mammary artery to LAD. b. Saphenous vein graft to OM, distal right coronary. c. Radial artery to D2. DESCRIPTION OF HOSPITAL STAY: Mr. Wilson is a 38-year-old gentleman, who presented with a 3- to 4-day history of chest pressure, burning, nausea and fatigue. He had elevated cardiac enzymes. He underwent appropriate workup, including cardiac echo, showing ejection fraction of 50% to 55% with mild inferior hypokinesis. This led to cardiac catheterization revealing severe 3-vessel disease. He was taken to the operating room and underwent coronary artery bypass grafting as above on 09/05. Postoperatively, he has done well. He has had no rhythm disturbances. At time of discharge, he is ambulatory, tolerating regular diet, and having good bowel and bladder function. Incisions are clean and dry without evidence of infection. DISCHARGE MEDICATIONS: 1. Omeprazole 20 mg daily. 2. Aspirin 325 mg daily. 3. Zestril 2.5 mg daily. 4. Lopressor 12.5 mg b.i.d. 5. Zocor 20 mg at bedtime. FOLLOWUP: Followup is with Dr. Pastrana in [address] Junior in a month. Job ID: [id number]
[2018-09-11 07:54] LABS: Actual Bicarbonate (HCO3a) 22.8 mEq/L (22-28); Analyzer IN Cardio OR; Base Excess (BEa) -0.5 mEq/L (-2.0 to +3.0); CO2 Tension 33.4 mmHg (35.0-45.0); Calcium, Ionized 1.07 mmol/L (1.12-1.30); Carboxyhemoglobin (COHb) 0.6 gm% (0.0-3.0); Hemoglobin (Hb) 12.3 g/dL (14.0-18.0); O2 Tension (PaO2) 281.3 mmHg (80.0-100.0); Potassium - ABG Lab 3.71 mmol/L (3.70-5.30); pH, Arterial 7.45 (7.35-7.45)
[2018-09-11 07:54] LABS: Actual Bicarbonate (HCO3a) 20.4 mEq/L (22-28); Analyzer IN Cardio OR; Base Excess (BEa) -3.2 mEq/L (-2.0 to +3.0); CO2 Tension 32.4 mmHg (35.0-45.0); Calcium, Ionized 1.09 mmol/L (1.12-1.30); Carboxyhemoglobin (COHb) 1.4 gm% (0.0-3.0); Hemoglobin (Hb) 13.1 g/dL (14.0-18.0); O2 Tension (PaO2) 116.2 mmHg (80.0-100.0); Potassium - ABG Lab 4.29 mmol/L (3.70-5.30); pH, Arterial 7.42 (7.35-7.45)
[2018-09-11 07:55] LABS: Actual Bicarbonate (HCO3a) 22.8 mEq/L (22-28); Analyzer IN Cardio OR; Base Excess (BEa) -5.1 mEq/L (-2.0 to +3.0); CO2 Tension 55.8 mmHg (35.0-45.0); Calcium, Ionized 1.07 mmol/L (1.12-1.30); Carboxyhemoglobin (COHb) 0.4 gm% (0.0-3.0); Hemoglobin (Hb) 10.8 g/dL (14.0-18.0); O2 Tension (PaO2) 346.1 mmHg (80.0-100.0); Potassium - ABG Lab 5.43 mmol/L (3.70-5.30)
[2018-09-11 07:55] LABS: Actual Bicarbonate (HCO3a) 22.9 mEq/L (22-28); Analyzer IN Cardio OR; Base Excess (BEa) -3.6 mEq/L (-2.0 to +3.0); CO2 Tension 47.8 mmHg (35.0-45.0); Calcium, Ionized 1.04 mmol/L (1.12-1.30); Carboxyhemoglobin (COHb) 0.4 gm% (0.0-3.0); Hemoglobin (Hb) 10.8 g/dL (14.0-18.0); O2 Tension (PaO2) 439.4 mmHg (80.0-100.0); Potassium - ABG Lab 4.79 mmol/L (3.70-5.30)
[2018-09-11 07:56] LABS: Actual Bicarbonate (HCO3a) 19.1 mEq/L (22-28); Analyzer IN Cardio OR; Base Excess (BEa) -5.8 mEq/L (-2.0 to +3.0); CO2 Tension 34.9 mmHg (35.0-45.0); Calcium, Ionized 1.22 mmol/L (1.12-1.30); Carboxyhemoglobin (COHb) 0.5 gm% (0.0-3.0); Hemoglobin (Hb) 10.9 g/dL (14.0-18.0); Potassium - ABG Lab 4.84 mmol/L (3.70-5.30); pH, Arterial 7.36 (7.35-7.45)
[2018-09-11 08:01] LABS: Puncture Site ALINE
[2018-09-11 08:01] LABS: Puncture Site ALINE
[2018-09-11 08:01] LABS: Puncture Site ALINE
[2018-09-11 08:10] LABS: Puncture Site ALINE; pH, Arterial 7.23 (7.35-7.45)
[2018-09-11 08:11] LABS: Puncture Site ALINE
== END 2018-09-09 13:22 | disposition home or self-care (01) | DRG 233 ==
LOC: ERS 22:33 → CCU 09-04 00:16 → 2NO 09-07 17:09
PROVIDERS: ADMIT Internal Medicine; ATTEND Thoracic Surgery (Cardiothoracic Vascular Surgery)
PROC: 4A023N7 Measurement of Cardiac Sampling and Pressure, Left Heart, Percutaneous Approach (ICD-10-PCS; 2018-09-04)
PROC: B2111ZZ Fluoroscopy of Multiple Coronary Arteries using Low Osmolar Contrast (ICD-10-PCS; 2018-09-04)
PROC: B2151ZZ Fluoroscopy of Left Heart using Low Osmolar Contrast (ICD-10-PCS; 2018-09-04)
PROC: 02100Z9 Bypass Coronary Artery, One Artery from Left Internal Mammary, Open Approach (ICD-10-PCS; principal; 2018-09-05)
PROC: 021109W Bypass Coronary Artery, Two Arteries from Aorta with Autologous Venous Tissue, Open Approach (ICD-10-PCS; 2018-09-05)
PROC: 02100AW Bypass Coronary Artery, One Artery from Aorta with Autologous Arterial Tissue, Open Approach (ICD-10-PCS; 2018-09-05)
PROC: 06BQ4ZZ Excision of Left Saphenous Vein, Percutaneous Endoscopic Approach (ICD-10-PCS; 2018-09-05)
PROC: 03BC0ZZ Excision of Left Radial Artery, Open Approach (ICD-10-PCS; 2018-09-05)
PROC: 5A1221Z Performance of Cardiac Output, Continuous (ICD-10-PCS; 2018-09-05)
PROC: 0T9B80Z Drainage of Bladder with Drainage Device, Via Natural or Artificial Opening Endoscopic (ICD-10-PCS; 2018-09-05)
DX: I21.4 Non-ST elevation (NSTEMI) myocardial infarction (principal); J96.01 Acute respiratory failure with hypoxia; S37.39XA Other injury of urethra, initial encounter; I10 Essential (primary) hypertension; K21.9 Gastro-esophageal reflux disease without esophagitis; I25.10 Atherosclerotic heart disease of native coronary artery without angina pectoris; F17.210 Nicotine dependence, cigarettes, uncomplicated; N36.5 Urethral false passage; E66.01 Morbid (severe) obesity due to excess calories; Z68.39 Body mass index [BMI] 39.0-39.9, adult; G47.33 Obstructive sleep apnea (adult) (pediatric); Z88.8 Allergy status to other drugs, medicaments and biological substances; Z79.899 Other long term (current) drug therapy; X58.XXXA Exposure to other specified factors, initial encounter; Y92.239 Unspecified place in hospital as the place of occurrence of the external cause
CPT/HCPCS: 36415; 36416; 36430; 71045; 76942; 80048; 80061; 82553; 82805; 83036; 84484; 85025; 85610; 85730; 86850; 86900; 86901; 93005; 93010; 93306; 93458; 93798; 94002; 96365; 96366; 96376; 99152; 99153; A4216; C1769; C9113; J0360; J0690; J1100; J1580; J1644; J1815; J1885; J1940; J2001; J2150; J2250; J2270; J2405; J2440; J2704; J2720; J3010; J3370; J3475; J3480; J7050; P9045; P9047; S0017; S0028